=== PATIENT | female | born 1990 | race American Indian/Alaskan Native ===

== ENCOUNTER 2017-09-21 23:29 | Emergency (ER) | payer MEDICAID ==
[2017-09-21] MEDS ORDERED: CATAPRES ONE (23:57)
[2017-09-22] MEDS ORDERED: CATAPRES PO ONE (00:02)
[2017-09-22 00:47] LABS: Hematocrit 32.4 % (30.3-42.9); Hemoglobin 10.7 gm/dl (10.1-14.3); Mean Corpuscular HGB Conc 33 % (30-34); Mean Corpuscular Hemoglobin 33 pg (28-32); Mean Corpuscular Volume 98 fl (79-97); Platelet Count 243 K/mm3 (140-440); Red Cell Distribution Width 14.5 % (13.2-15.2)
[2017-09-22 01:00] LABS: Alanine Aminotransferase 17 units/L (7-56); Albumin 3.1 g/dL (3.9-5); BUN/Creatinine Ratio 19; Blood Urea Nitrogen 15 mg/dL (7-17); Calcium 8.6 mg/dL (8.4-10.2); Hemolysis Index 0
--- NOTE | 2017-09-22 03:16 | Emergency Department Report ---
ED General Adult HPI - General Chief complaint: High BP Stated complaint: INFECTION Time Seen by Provider: 09/22/17 03:00 Source: patient Mode of arrival: Ambulatory Limitations: No Limitations - History of Present Illness Initial comments: 25-year-old female history of hypertension with presenting with 2 complaints elevated blood pressure she was given clonidine on arrival her systolic is now 150, with wound dehiscence to a Pfannenstiel incision from a C- section on 09/14 at [facility] by Dr. Conti was some serosanguineous drainage -: Gradual, hour(s), days(s) Radiation: non-radiation, abdomen Severity scale (0 -10): 4 Consistency: intermittent Associated Symptoms: denies other symptoms. denies: confusion, chest pain, cough, diaphoresis, fever/chills, headaches, loss of appetite, malaise, nausea/ vomiting, rash, seizure, shortness of breath, syncope, weakness - Related Data Previous Rx's Medication Instructions Recorded Last Taken Type Hydrochlorothiazide [Hctz] 12.5 mg PO QDAY #15 capsule 09/22/17 Unknown Rx Allergies Allergy/AdvReac Type Severity Reaction Status Date / Time No Known Allergies Allergy Verified 09/22/17 00:08 ED Review of Systems ROS: Stated complaint: INFECTION Other details as noted in HPI Comment: All other systems reviewed and negative Constitutional: denies: diaphoresis, fever, malaise Eyes: denies: eye discharge, vision change ENT: denies: dental pain, hearing loss, epistaxis Respiratory: denies: cough, orthopnea, shortness of breath, SOB with exertion, SOB at rest, stridor Cardiovascular: denies: chest pain, palpitations, dyspnea on exertion, orthopnea , syncope, paroxysmal nocturnal dyspnea Gastrointestinal: denies: abdominal pain, nausea, vomiting, diarrhea, constipation, hematemesis, melena, hematochezia Neurological: denies: headache, weakness, numbness, paresthesias, confusion, abnormal gait, vertigo ED Past Medical Hx - Past Medical History Previous Medical History?: Yes Additional medical history: pre eclampsia - Surgical History Past Surgical History?: Yes Additional Surgical History: - Social History Smoking Status: Never Smoker Substance Use Type: None - Medications Home Medications: Home Medications Medication Instructions Recorded Confirmed Last Taken Type Hydrochlorothiazide [Hctz] 12.5 mg PO QDAY #15 capsule 09/22/17 Unknown Rx ED Physical Exam - General Limitations: No Limitations General appearance: alert, anxious - Head Head exam: Present: atraumatic, normocephalic - Eye Eye exam: Present: normal appearance, PERRL, EOMI - ENT ENT exam: Present: normal exam, normal orophraynx - Neck Neck exam: Present: normal inspection. Absent: tenderness, meningismus - Respiratory Respiratory exam: Present: normal lung sounds bilaterally. Absent: respiratory distress, wheezes, rales, rhonchi, stridor, chest wall tenderness, accessory muscle use, decreased breath sounds, prolonged expiratory - Cardiovascular Cardiovascular Exam: Present: regular rate, normal rhythm, normal heart sounds - GI/Abdominal GI/Abdominal exam: Present: soft, tenderness, other (well-healing incision with some local dehiscence then serosanguineous drainage no warmth or erythema no purulent discharge). Absent: distended, guarding, rebound, rigid, mass, pulsatile mass - Extremities Exam Extremities exam: Present: normal inspection, normal capillary refill. Absent: pedal edema, joint swelling, calf tenderness - Neurological Exam Neurological exam: Present: alert, oriented X3, CN II-XII intact. Absent: motor sensory deficit - Skin Skin exam: Absent: rash, petechiae, pallor ED Course Vital Signs 09/21/17 09/21/17 09/22/17 23:31 23:47 01:45 Temperature 98.5 F 98.5 F 98.7 F Pulse Rate 98 H 95 H 90 Respiratory 18 20 16 Rate Blood Pressure 211/150 211/150 Blood Pressure 211/150 151/102 [Right] O2 Sat by Pulse 99 97 100 Oximetry 09/22/17 09/22/17 09/22/17 01:48 02:00 02:16 Temperature Pulse Rate 74 65 Respiratory 25 H 25 H Rate Blood Pressure 156/101 156/101 Blood Pressure [Right] O2 Sat by Pulse 100 100 99 Oximetry 09/22/17 09/22/17 09/22/17 02:30 02:46 03:00 Temperature Pulse Rate 72 63 63 Respiratory 23 30 H 29 H Rate Blood Pressure 154/96 154/96 154/94 Blood Pressure [Right] O2 Sat by Pulse 98 98 100 Oximetry 09/22/17 09/22/17 03:16 04:32 Temperature Pulse Rate 62 68 Respiratory 29 H 27 H Rate Blood Pressure 154/94 155/99 Blood Pressure [Right] O2 Sat by Pulse 98 99 Oximetry ED Medical Decision Making - Lab Data Result diagrams: 09/22/17 00:15 09/22/17 00:15 - Medical Decision Making Laboratories his were unremarkable CT abdomen and pelvis show postoperative changes but no evidence of abscess or fluid collection patient did have a dressing in the ED there is no evidence of deep abscess or fluid collection she does have some local dehiscence she will need follow-up with her regular doctor there is no acute abdomen at this time appreciated vital signs are stable for outpatient follow-up blood pressure was improved in ED Critical care attestation.: If time is entered above; I have spent that time in minutes in the direct care of this critically ill patient, excluding procedure time. ED Disposition Clinical Impression: Hypertension, Wound dehiscence, Disposition: TO HOME OR SELFCARE Is pt being admited?: No Condition: Stable Instructions: Hypertension (ED), Acute Wound Care (ED) Additional Instructions: Return immediately if new alarming symptoms dressing changes each day return in ER: 911 if redness or drainage worse breakdown or other problems or fever see her doctor or the doctor listed in 2 days Prescriptions: Hydrochlorothiazide [Hctz] 12.5 mg PO QDAY #15 capsule Referrals: ABBI DIAZ MD [Primary Care Provider] - 3-5 Days BHAVYA MARIN MD [Staff Physician] - 3-5 Days Time of Disposition: 05:37
[2017-09-22 03:49] LABS: Band Neutrophils # (Manual) 1.3 K/mm3; Basophils % (Manual) 0 % (0.0-1.8); Total Cells Counted 100
[2017-09-22 03:50] LABS: Anisocytosis 1+; Platelet Estimate Consistent w Auto
--- NOTE | 2017-09-22 04:54 | Cat Scan Report ---
FINAL REPORT EXAM: CT ABDOMEN PELVIS W CON HISTORY: pelvic hematoma TECHNIQUE: Routine axial imaging was obtained of the abdomen and pelvis following the intravenous injection of iodinated contrast. Delayed imaging was obtained of the kidneys ureters and bladder. Sagittal and coronal reconstructions were reviewed. FINDINGS: The lung bases are clear. Pleural fluid is not seen. The liver, gallbladder, pancreas, spleen, and adrenal glands appear normal. The kidneys enhance normally. The abdominal aorta is normal in caliber. The vascular structures enhance normally. The bowel loops are normal in caliber and course. The appendix appears normal. There no evidence of free fluid or adenopathy. The uterus is enlarged. The bladder appears normal. There is no evidence of an intraperitoneal or extraperitoneal hematoma in the abdomen or pelvis. The surrounding soft tissues reveal nonspecific reticulation of the subcutaneous fat along the pelvis anteriorly. With this is posttraumatic in origin is uncertain. The skeletal structures show no evidence acute fracture. IMPRESSION: Nonspecific induration and reticulation of the subcutaneous fat along the pelvis anteriorly. With this is posttraumatic or inflammatory in origin is uncertain. No evidence of extraperitoneal or intraperitoneal hematoma. Enlarged uterus. No acute process in the abdomen and pelvis otherwise.
[2017-09-22 05:56] VITALS: BP 144/90
== END 2017-09-22 06:14 | disposition home or self-care (01) ==
LOC: ED 23:29
DX: T81.30XA Disruption of wound, unspecified, initial encounter (principal); I10 Essential (primary) hypertension; Y83.8 Other surgical procedures as the cause of abnormal reaction of the patient, or of later complication, without mention of misadventure at the time of the procedure; Y92.89 Other specified places as the place of occurrence of the external cause
CPT/HCPCS: 36415; 74177; 80053; 85007; 85025; 99284; Q9967